=== PATIENT | female | born 1950 | race Caucasian/White ===

== ENCOUNTER 2018-11-14 10:32 | Emergency (ER) | payer MEDICARE, BC ==
[2018-11-14 11:47] VITALS: BP 144/89
--- NOTE | 2018-11-14 12:20 | UC ---
Eye Complaint HPI - HPI Summary HPI Summary: 68-year-old female presents with 2 day history of right eye redness, itching, and tearing. States last night she started developing aching of the right eye especially with movement as well as some photophobia. Denies fever, chills, injury, purulent drainage, blurred vision, diplopia, floaters, loss of vision, or URI symptoms. - History of Current Complaint Chief Complaint: UCEye Stated Complaint: RT EYE CONCERN Time Seen by Provider: 11/14/18 12:00 Hx Obtained From: Patient Pain Intensity: 3 - Allergies/Home Medications Allergies/Adverse Reactions: Allergies Allergy/AdvReac Type Severity Reaction Status Date / Time garlic Allergy Unknown dizzy, Verified 11/14/18 11:39 nausea onion Allergy Unknown nausea, Verified 11/14/18 11:39 dizzy Home Medications: Home Medications Cholecalciferol TAB* [Vitamin D TAB*] 7,000 unit PO DAILY 11/14/18 [History Confirmed 11/14/18] Levothyroxine TAB* [Synthroid TAB*] 150 mcg PO DAILY 11/14/18 [History Confirmed 11/14/18] Multivitamin [Multivitamins] 1 cap PO 11/14/18 [History] PMH/Surg Hx/FS Hx/Imm Hx Endocrine History: Hypothyroidism - Surgical History Surgical History: Yes Surgery Procedure, Year, and Place: right ovary cyst right breast tumor benign jeffy shoulders BILATERAL wrist - Family History Known Family History: Positive: Non-Contributory - Social History Occupation: Retired Lives: With Family Alcohol Use: Weekly Substance Use Type: None Smoking Status (MU): Never Smoked Tobacco Review of Systems All Other Systems Reviewed And Are Negative: Yes Constitutional: Negative: Fever, Chills Skin: Positive: Negative Eyes: Positive: Drainage - Tearing, Eye Redness, Photophobia, Other - Eye pain with movement. Negative: Blurred Vision, Diplopia ENT: Negative: Sore Throat, Ear Ache, Nasal Discharge, Sinus Congestion, Sinus Pain/Tenderness Respiratory: Negative: Shortness Of Breath, Cough Cardiovascular: Negative: Palpitations, Chest Pain Gastrointestinal: Negative: Abdominal Pain, Vomiting, Diarrhea, Nausea Musculoskeletal: Positive: Negative Neurological: Positive: Negative Is Patient Immunocompromised?: No Physical Exam - Summary Physical Exam Summary: GENERAL APPEARANCE: Well developed, well nourished, alert and cooperative, and appears to be in no acute distress. EYES: Right eye injection. Mild tearing without purulent drainage. Pupils constricted at 2-3 mm, slightly sluggish response. Patient reports consensual and contralateral pain with light reflex. EOM intact. Vision is grossly intact. Tetracaine and fluorosceine instilled into the right eye and eye examined under magnification with Wood's lamp. No stain uptake, abrasion, FB, or penetrating injury noted. EARS: External auditory canals and tympanic membranes clear, hearing grossly intact. NOSE: No nasal discharge. THROAT: Oral cavity and pharynx normal. No inflammation, swelling, exudate, or lesions. Teeth and gingiva in good general condition. NECK: Neck supple, non-tender without lymphadenopathy. CARDIAC: Normal S1 and S2. No S3, S4 or murmurs. Rhythm is regular. There is no peripheral edema, cyanosis or pallor. Extremities are warm and well perfused. Capillary refill is less than 2 seconds. LUNGS: Clear to auscultation without rales, rhonchi, wheezing or diminished breath sounds. ABDOMEN: Positive bowel sounds. Soft, nondistended, nontender. No guarding or rebound. No masses or hepatosplenomegally. MUSKULOSKELETAL: ROM intact to all extremities. No joint erythema or tenderness. Normal muscular development. Normal gait. SKIN: Skin normal color, texture and turgor with no lesions or eruptions. Triage Information Reviewed: Yes Vital Signs: Initial Vital Signs Temp 98.3 F 11/14/18 11:41 Pulse 57 11/14/18 11:41 Resp 16 11/14/18 11:41 BP 144/89 11/14/18 11:41 Pulse Ox 97 11/14/18 11:41 Vital Signs Reviewed: Yes Procedures - Procedure Summary Procedure Summary: Tetracaine and fluorosceine instilled into right eye and examination under magnification with Wood's lamp performed. No stain uptake, abrasion, FB, or penetrating injury noted. Post-exam eye flushed with normal saline. Patient tolerated well. Eye Complaint Course/Dx - Course Course Of Treatment: 68-year-old female presents with 2 day history of right eye redness, itching, and tearing. States last night she started developing aching of the right eye especially with movement as well as some photophobia. Denies fever, chills, injury, purulent drainage, blurred vision, diplopia, floaters, loss of vision, or URI symptoms. Afebrile. Vital signs stable. Exam reveals an adult female in no acute distress with right eye injection, mild tearing without purulent drainage, constricted pupils at 2-3 mm with slightly sluggish response. Patient reports consensual and contralateral pain with light reflex. EOM intact. Vision is grossly intact. Tetracaine and fluorosceine instilled into the right eye and eye examined under magnification with Wood's lamp. No stain uptake, abrasion, FB, or penetrating injury noted. I am concerned for a possible uveitis and I'm recommending urgent evaluation by ophthalmology. I spoke with the nurse at Dr. Kalen Vargas's office who states that patient can go directly to the office for evaluation. I have discussed my concerns with the patient and she is agreeable to evaluation by Dr. Vargas and is electing to transport via private vehicle. - Differential Dx/Diagnosis Differential Diagnosis/HQI/PQRI: Conjunctivitis, Corneal Abrasion, Foreign Body , Keratitis, Periorbital Cellulitis, Orbital Cellulitis, Uveitis Provider Diagnosis: Acute right eye pain Discharge - Sign-Out/Discharge Documenting (check all that apply): Patient Departure All imaging exams completed and their final reports reviewed: No Studies - Discharge Plan Condition: Stable Disposition: HOME Patient Education Materials: Iritis (ED) Referrals: Akua Murillo MD [Primary Care Provider] - () Kalen Vargas MD [Medical Doctor] - As Soon As Possible Additional Instructions: Your history and exam are concerning for a condition call uveitis which is inflammation of the middle structures of the eye incluing the iris. I am recommending that you be urgently evaluated by ophthalmology for a more thorough eye exam. Go directly to Dr. Kalen Vargas's office on the 2nd floor at [address] [place] [address] for evaluation. - Billing Disposition and Condition Condition: STABLE Disposition: Home
[2018-11-14] MEDS ORDERED: Tetracaine 0.5% OPTH.SOL 4 ML* 1 DROP BTL RIGHT EYE ONE (12:24)
[2018-11-14] MEDS ORDERED: Fluorescein Sodium TOPICAL* 1 MG TEST STRIP OPHTHALMIC ONE (12:24)
== END 2018-11-14 12:55 | disposition home or self-care (01) ==
LOC: UCCORT 10:32
DX: H57.11 Ocular pain, right eye (principal); E03.9 Hypothyroidism, unspecified; Z91.018 Allergy to other foods; Z79.899 Other long term (current) drug therapy
CPT/HCPCS: 99212; A9270-GY; G0463